=== PATIENT | male | born 1970 | race African-American/Black ===

== ENCOUNTER 2020-02-17 15:31 | Inpatient (IN) | payer MEDICAID ==
[~2020-02-17] VITALS: Ht 177.8 cm; Wt 81.6 kg
[2020-02-17] MEDS ORDERED: MORPHINE SULFATE 4 MG/ML CPJ (NOT FOR IM USE) IV STA (16:22)
[2020-02-17] MEDS ORDERED: ONDANSETRON HCL 4MG/2ML INJ IV STA (16:22)
[2020-02-17] MEDS ORDERED: SODIUM CHLORIDE 0.9% 1,000 ML IV ONE (16:22)
[2020-02-17 16:30] LABS: BASOPHILS % 0.5 % (0.0-2.0); EOSINOPHILS % 0.9 % (0.0-5.0); LYMPHOCYTES % 21.8 % (20.0-50.0); MEAN CORPUSCULAR HEMOGLOBIN 30.2 pg (28.0-32.0); MEAN CORPUSCULAR VOLUME 90.5 fL (80.0-94.0); MEAN PLATELET VOLUME 8.9 fl (7.4-10.4); MONOCYTES % 5.6 % (2.0-8.0); NEUTROPHILS % 71.2 % (40.0-76.0); PLATELET 274 x1000/uL (130-400); RED BLOOD CELL COUNT 4.64 mill/uL (4.7-6.1); RED CELL DISTRIBUTION WIDTH 15.7 % (11.6-14.6)
[2020-02-17 16:33] LABS: CHLORIDE 105 mEq/L (98-107)
[2020-02-17] MEDS ORDERED: MORPHINE SULFATE 4 MG/ML CPJ (NOT FOR IM USE) IV ONE (18:30)
[2020-02-17] MEDS ORDERED: DIATR MEGLU/DIATRIZOATE SOLN 120ML ONE (19:46)
[2020-02-17] MEDS ORDERED: IOHEXOL-300 100 ML BOTTLE ONE (19:46)
[2020-02-17 20:19] LABS: CLARITY URINE CLEAR (CLEAR); COLOR URINE YELLOW (YELLOW); KETONES URINE NEGATIVE (NEGATIVE); LEUKOCYTE ESTERASE URINE NEGATIVE (NEGATIVE); NITRITE URINE NEGATIVE (NEGATIVE); OCCULT BLOOD URINE TRACE (NEGATIVE); PROTEIN URINE TRACE (NEGATIVE); SPECIFIC GRAVITY URINE 1.078 (1.005-1.030); UROBILINOGEN URINE 0.2 E.U./dL (0.2-1.0)
[2020-02-17 23:30] VITALS: BP 135/89
[2020-02-18] VITALS: BP 135/89
[2020-02-18] MEDS ORDERED: POTASSIUM CHLORIDE 20MEQ TABLET SR PO SCH (00:15)
[2020-02-18] MEDS: CEFTRIAXONE 1 G PREMIX 50 ML IV SCH (02:24)
[2020-02-18] MEDS: MORPHINE SULFATE 2 MG/ML CPJ (NOT FOR IM USE) IV PRN ×3 (02:25→11:06)
[2020-02-18 04:00] VITALS: BP 116/67
[2020-02-18 07:14] LABS: HEMATOCRIT 41.5 % (42.0-52.0); HEMOGLOBIN 13.7 g/dL (14.0-18.0); MEAN CORPUSCULAR HEMOGLOBIN 29.6 pg (28.0-32.0); MEAN CORPUSCULAR VOLUME 89.7 fL (80.0-94.0); PLATELET 239 x1000/uL (130-400); RED BLOOD CELL COUNT 4.63 mill/uL (4.7-6.1)
[2020-02-18] MEDS ORDERED: OMEPRAZOLE 20MG CAPSULE EXTENDED RELEASE PO SCH (07:20)
[2020-02-18 07:26] LABS: CHLORIDE 105 mEq/L (98-107)
[2020-02-18 08:00] VITALS: BP 144/90
[2020-02-18] MEDS ORDERED: SPIRONOLACTONE 50MG TABLET PO SCH (09:00)
[2020-02-18] MEDS ORDERED: FUROSEMIDE 40MG TABLET PO SCH ×3 (09:00→11:15)
[2020-02-18] MEDS ORDERED: FOLIC ACID 1MG TABLET PO SCH (09:00)
[2020-02-18] MEDS: MULTIVITAMINS,THER W-MINERALS TABLET PO SCH (10:19)
[2020-02-18] MEDS: THIAMINE HCL 100MG TABLET PO SCH (10:19)
[2020-02-18] MEDS: FOLIC ACID 1MG TABLET PO SCH (11:15)
[2020-02-18 11:57] VITALS: BP 160/100
[2020-02-18] MEDS: METRONIDAZOLE 500 MG PREMIX 100 ML IV SCH ×2 (14:48→23:23)
[2020-02-18 16:00] VITALS: BP 133/91
[2020-02-18 20:00] VITALS: BP 116/86
[2020-02-18] MEDS: DEXT 5%/0.45% NACL 1000ML 1,000 ML IV SCH (23:23)
[2020-02-19 00:26] VITALS: BP 136/91
[2020-02-19] MEDS: CEFTRIAXONE 1 G PREMIX 50 ML IV SCH (00:54)
[2020-02-19 04:00] VITALS: BP 158/84
[2020-02-19] MEDS: METRONIDAZOLE 500 MG PREMIX 100 ML IV SCH (05:23)
[2020-02-19 06:48] LABS: BASOPHILS % 0.6 % (0.0-2.0); EOSINOPHILS % 0.9 % (0.0-5.0); HEMATOCRIT. 40.7 % (42.0-52.0); HEMOGLOBIN. 13.8 g/dL (14.0-18.0); LYMPHOCYTES % 16.3 % (20.0-50.0); MEAN CORPUSCULAR HEMOGLOBIN 30.6 pg (28.0-32.0); MEAN PLATELET VOLUME 8.6 fl (7.4-10.4); MONOCYTES % 7.8 % (2.0-8.0); NEUTROPHILS % 74.4 % (40.0-76.0); PLATELET 209 x1000/uL (130-400); RED BLOOD CELL COUNT 4.52 mill/uL (4.7-6.1); RED CELL DISTRIBUTION WIDTH 15.4 % (11.6-14.6)
[2020-02-19 06:51] LABS: CHLORIDE 105 mEq/L (98-107)
[2020-02-19 08:00] VITALS: BP 139/92
[2020-02-19] MEDS ORDERED: PANTOPRAZOLE SODIUM 40 MG/VIAL IV SCH (09:00)
[2020-02-19] MEDS: THIAMINE HCL 100MG TABLET PO SCH (09:52)
[2020-02-19] MEDS: MULTIVITAMINS,THER W-MINERALS TABLET PO SCH (09:52)
[2020-02-19] MEDS: FOLIC ACID 1MG TABLET PO SCH (09:53)
[2020-02-19] MEDS: DEXT 5%/0.45% NACL 1000ML 1,000 ML IV SCH (11:40)
[2020-02-19 12:00] VITALS: BP 133/87
[2020-02-19 12:58] VITALS: BP 133/87
[2020-02-19] MEDS ORDERED: METRONIDAZOLE 500MG TABLET PO SCH (14:00)
== END 2020-02-19 13:49 | disposition home or self-care (01) | DRG 249 ==
LOC: ER 15:31 → 6EST 21:32
PROVIDERS: ADMIT Internal Medicine; ATTEND Emergency Medicine
DX: K52.9 Noninfective gastroenteritis and colitis, unspecified (principal); R18.8 Other ascites; E87.6 Hypokalemia; J44.9 Chronic obstructive pulmonary disease, unspecified; F12.90 Cannabis use, unspecified, uncomplicated; F17.210 Nicotine dependence, cigarettes, uncomplicated; Z71.6 Tobacco abuse counseling
CPT/HCPCS: 36415; 71045; 74018; 74176; 74177; 76705; 80048; 80053; 81003; 85025; 85027; 93005; 99285; C9113; J0696; J2270; J2405; J3490; J7030; Q9963; Q9967